=== PATIENT | male | born 1990 | race Caucasian/White ===

== ENCOUNTER 2017-04-26 00:36 | Emergency (ER) | payer OTHER ==
[2017-04-26 01:06] VITALS: BP 132/82; TEMP 97.8; BMI 21.8
[2017-04-26] MEDS ORDERED: MORPHINE 4 MG/ML SYRINGE IM STA (01:09)
[2017-04-26] MEDS ORDERED: ZOFRAN 4 MG/2 ML IM STA (01:09)
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
== END 2017-04-26 02:05 | disposition home or self-care (01) ==
LOC: ED 00:36
DX: S22.31XA Fracture of one rib, right side, initial encounter for closed fracture (principal); V89.0XXA Person injured in unspecified motor-vehicle accident, nontraffic, initial encounter; F17.210 Nicotine dependence, cigarettes, uncomplicated
CPT/HCPCS: 96372; 99283

== ENCOUNTER 2018-06-30 13:25 | Emergency (ER) ==
[2018-06-30 13:29] VITALS: BP 132/81; TEMP 98.4; BMI 24.7
--- NOTE | 2018-06-30 15:29 | ED.PDOC ---
General ED Provider: Dr. JU GARAY Chief Complaint: Nausea/Vomiting Stated Complaint: DIARRHEA Time Seen by Physician: 13:30 Mode of Arrival: Walk-In Information Source: Patient Exam Limitations: No limitations Nursing and Triage Documentation Reviewed and Agree: Yes Does patient meet sepsis criteria?: No System Inflammatory Response Syndrome: Not Applicable Sepsis Protocol: For patient's 13 years and over: Temp is 96.8 and below OR 101 and greater Pulse >90 BPM Resp >20/minute Acutely Altered Mental Status Are patient's symptoms suggestive of a new infection, such as: -Pneumonia -Skin, Soft Tissue -Endocarditis -UTI -Bone, Joint Infection -Implantable Device -Acute Abdominal Infection -Wound Infection -Meningitis -Blood Stream Catheter Infection -Unknown GI Complaint Exam - Vomiting/Diarrhea Complaint/Exam Onset/Duration: 1 DAY Symptoms Are: Still present Episodes of Diarrhea Over Last 24 Hours: 4 Initial Severity: Mild Current Severity: None Character of Vomiting: Reports: Non-bilious Aggravating: Reports: None Alleviating: Reports: None Associated Signs and Symptoms: Denies: Dizziness, Light-headedness, Melena, Hematemesis, Fever, Abdominal pain, Cramping Related History: Reports: Similar episode Non-GI Risk Factors: Reports: None Surgical Obstruction Risk Factors: Reports: None Related Surgical History: Reports: None Abdominal Findings: Present: None Differential Diagnoses: Viral Gastroenteritis Review of Systems - Review Of Systems Constitutional: Reports: No symptoms Eyes: Reports: No symptoms Ears, Nose, Mouth, Throat: Reports: No symptoms Respiratory: Reports: No symptoms Cardiac: Reports: No symptoms GI: Reports: Diarrhea, Nausea, Vomiting : Reports: No symptoms Musculoskeletal: Reports: No symptoms Skin: Reports: No symptoms Neurological: Reports: No symptoms Endocrine: Reports: No symptoms Hematologic/Lymphatic: Reports: No symptoms All Other Systems: Reviewed and Negative Past Medical History - Past Medical History Previously Healthy: Yes Endocrine: Reports: None Cardiovascular: Reports: None Respiratory: Reports: None Hematological: Reports: None Gastrointestinal: Reports: None Genitourinary: Reports: None Neuro/Psych: Reports: None Musculoskeletal: Reports: None Cancer: Reports: None - Surgical History General Surgical History: Reports: None - Family History Family History: Reports: None - Social History Smoking Status: Current every day smoker Hx Substance Use: Yes (marijuana) Alcohol Screening: Heavy Physical Exam - Physical Exam Appearance: Well-appearing, No pain distress, Well-nourished Eyes: SANDRA, EOMI, Conjunctiva clear ENT: Ears normal, Nose normal, Oropharynx normal Respiratory: Airway patent, Breath sounds clear, Breath sounds equal, Respirations nonlabored Cardiovascular: RRR, Pulses normal, No rub, No murmur GI/: Soft, Nontender, No masses, Bowel sounds normal, No Organomegaly Musculoskeletal: Normal strength, ROM intact, No edema, No calf tenderness Skin: Warm, Dry, Normal color Neurological: Sensation intact, Motor intact, Reflexes intact, Cranial nerves intact, Alert, Oriented Psychiatric: Affect appropriate, Mood appropriate Critical Care Note - Critical Care Note Total Time (mins): 0 Course - Course Hematology/Chemistry: 06/30/18 14:20 06/30/18 14:20 Orders, Labs, Meds: Lab Review 06/30/18 06/30/18 06/30/18 14:15 14:20 14:20 WBC 4.81 RBC 5.04 Hgb 15.2 Hct 45.0 MCV 89.3 MCH 30.2 MCHC 33.8 RDW Coeff of Charlene 13.5 Plt Count 177 Immature Gran % (Auto) 0.2 Neut % (Auto) 58.2 Lymph % (Auto) 32.6 Pender % (Auto) 6.7 Eos % (Auto) 1.9 Baso % (Auto) 0.4 Immature Gran # (Auto) 0.0 Neut # (Auto) 2.8 Lymph # (Auto) 1.6 Pender # (Auto) 0.3 L Eos # (Auto) 0.1 Baso # (Auto) 0.0 Sodium 138 Potassium 3.6 Chloride 106 Carbon Dioxide 24 Anion Gap 11.6 BUN 13 Creatinine 1.01 Estimated GFR (MDRD) 89.00 BUN/Creatinine Ratio 12.87 Glucose 85 Calcium 9.5 Total Bilirubin 1.2 AST 18 ALT 14 Alkaline Phosphatase 82 Total Protein 7.9 Albumin 4.4 Globulin 3.5 Albumin/Globulin Ratio 1.26 Amylase 30 Lipase 10 Urine Color Yellow Urine Clarity Clear Urine pH 7.0 Ur Specific Jermyn 1.015 Urine Protein Negative Urine Glucose (UA) Negative Urine Ketones Negative Urine Blood Negative Urine Nitrite Negative Urine Bilirubin Negative Urine Urobilinogen 1.0 Ur Leukocyte Esterase Negative Orders Category Date Time Status AMYLASE Stat LAB 06/30/18 14:20 Completed CBC W/ AUTO DIFF Stat LAB 06/30/18 14:20 Completed COMPREHENSIVE METABOLIC PANEL Stat LAB 06/30/18 14:20 Completed LIPASE Stat LAB 06/30/18 14:20 Completed URINALYSIS C & S IF INDICATED Stat LAB 06/30/18 14:15 Completed Vital Signs: Temp Pulse Resp BP Pulse Ox 06/30/18 13:25 98.4 F 64 18 132/81 97 Departure - Departure Time of Disposition: 15:28 Disposition: HOME SELF-CARE Discharge Problem: Nausea, Vomiting, Gastroenteritis Instructions: Gastroenteritis (ED), Acute Nausea and Vomiting (ED) Condition: Good Pt referred to PMD for follow-up: Yes IPMP verified?: No Additional Instructions: Please call your Family Physician as soon as possible to schedule a follow-up appointment. Allergies/Adverse Reactions: Allergies No Known Allergies Allergy (Verified 06/30/18 13:29) Home Medications: Ambulatory Orders 1 [No Reported Medications] 04/26/17
== END 2018-06-30 15:32 | disposition home or self-care (01) ==
LOC: ED 13:25
DX: K52.9 Noninfective gastroenteritis and colitis, unspecified (principal); F17.210 Nicotine dependence, cigarettes, uncomplicated
CPT/HCPCS: 36415; 80053; 81001; 82150; 83690; 85025; 99283

== ENCOUNTER 2019-03-19 13:46 | Emergency (ER) ==
[2019-03-19 13:50] VITALS: BP 122/83; TEMP 99.1; BMI 22.6
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
== END 2019-03-19 14:09 | disposition home or self-care (01) ==
LOC: ED 13:46
DX: H93.91 Unspecified disorder of right ear (principal); H92.01 Otalgia, right ear; H66.91 Otitis media, unspecified, right ear; Z72.0 Tobacco use
CPT/HCPCS: 99282

== ENCOUNTER 2019-07-23 06:18 | Emergency (ER) ==
[2019-07-23 06:27] VITALS: BP 150/84; TEMP 100.9; BMI 21.4
--- NOTE | 2019-07-23 06:39 | ED.PDOC ---
General Stated Complaint: Abdominal pain Epigastric area x 2 days better when he put pressure on it. Admits to drinking a fifth of whisky and some mixed drinks. Time Seen by Physician: 06:31 Mode of Arrival: Walk-In Information Source: Patient Nursing and Triage Documentation Reviewed and Agree: Yes Does patient meet sepsis criteria?: No System Inflammatory Response Syndrome: Temp 101F or Greater, Pulse >90 BPM <AYESHA ORTA - Last Filed: 07/23/19 06:31> <JU GARAY - Last Filed: 07/23/19 08:24> ED Provider: Dr. JU GARAY Chief Complaint: Abdominal Pain Sepsis Protocol: For patient's 13 years and over: Temp is 96.8 and below OR 101 and greater Pulse >90 BPM Resp >20/minute Acutely Altered Mental Status Are patient's symptoms suggestive of a new infection, such as: -Pneumonia -Skin, Soft Tissue -Endocarditis -UTI -Bone, Joint Infection -Implantable Device -Acute Abdominal Infection -Wound Infection -Meningitis -Blood Stream Catheter Infection -Unknown GI Complaint Exam - Abdominal Pain Complaint/Exam Onset: Gradual Duration: 2 days Symptoms Are: Still present Timing: Constant Initial Severity: Moderate Current Severity: Severe Location of Pain: Epigastric Radiates To: Reports: Back Character: Reports: Aching, Throbbing, Cramping Aggravating: Reports: Movement (Lying down.) Alleviating: Reports: None Associated Signs and Symptoms: Reports: Back pain. Denies: Nausea, Vomiting AAA Risk Factors: Reports: None Cardiac Risk Factors: Reports: Smoking Testicular Torsion Risk Factors: Reports: None Surgical Obstruction Risk Factors: Reports: None Related Surgical History: Reports: None Abdominal Findings: Present: Peritoneal signs, Other (Guarding) Differential Diagnoses: Bowel Obstruction, Pancreatitis, Renal Colic, UTI <AYESHA ORTA - Last Filed: 07/23/19 06:31> Review of Systems - Review Of Systems Constitutional: Reports: No symptoms Eyes: Reports: No symptoms Respiratory: Reports: No symptoms Cardiac: Reports: No symptoms GI: Reports: Abdominal pain : Reports: No symptoms Musculoskeletal: Reports: No symptoms Skin: Reports: No symptoms Neurological: Reports: Anxiety Endocrine: Reports: No symptoms Hematologic/Lymphatic: Reports: No symptoms All Other Systems: Reviewed and Negative <AYESHA ORTA - Last Filed: 07/23/19 06:31> Past Medical History - Past Medical History Previously Healthy: Yes Endocrine: Reports: None Cardiovascular: Reports: None Respiratory: Reports: None Hematological: Reports: None Gastrointestinal: Reports: Liver (Hepatitis C), Gallstones Genitourinary: Reports: None Neuro/Psych: Reports: None Musculoskeletal: Reports: None Cancer: Reports: None - Surgical History General Surgical History: Denies: Cholecystectomy - Family History Family History: Reports: None - Social History Smoking Status: Current every day smoker Hx Substance Use: Yes (marijuana) Alcohol Screening: Heavy - Immunizations Tetanus Shot up to Date: No (last Td when freshman in ) <AYESHA ORTA - Last Filed: 07/23/19 06:31> Physical Exam - Physical Exam Appearance: Ill-appearing Pain Distress: Severe Neck: Supple Respiratory: Airway patent, Breath sounds clear, Breath sounds equal, Respirations nonlabored Cardiovascular: Pulses normal, Tachycardia GI/: Soft, Tender (Epigastric ), Bowel sounds hypoactive Musculoskeletal: Normal strength, ROM intact, No edema, No calf tenderness Skin: Warm, Dry, Normal color Neurological: Alert, Oriented <AYESHA ORTA - Last Filed: 07/23/19 06:31> Interpretation - Radiology Interpretation Radiology Interpretation By: Radiologist Exam Interpreted: CT Scan (Abdomen and Pelvis ) <YOUAYESHA Helio Last Filed: 07/23/19 06:31> Critical Care Note - Critical Care Note Total Time (mins): 0 <JU GARAY - Last Filed: 07/23/19 08:24> Course - Course Hematology/Chemistry: 07/23/19 06:50 07/23/19 06:50 <JU GARAY - Last Filed: 07/23/19 08:24> - Course Orders, Labs, Meds: Lab Review 07/23/19 07/23/19 07/23/19 06:50 06:50 06:50 WBC 5.55 RBC 4.92 Hgb 14.8 Hct 43.7 MCV 88.8 MCH 30.1 MCHC 33.9 RDW Coeff of Charlene 13.3 Plt Count 153 Immature Gran % (Auto) 0.4 Neut % (Auto) 80.1 Lymph % (Auto) 11.2 [place] % (Auto) 7.9 Eos % (Auto) 0.0 Baso % (Auto) 0.4 Immature Gran # (Auto) 0.0 Neut # (Auto) 4.5 Lymph # (Auto) 0.6 [place] # (Auto) 0.4 Eos # (Auto) 0.0 Baso # (Auto) 0.0 Sodium 136.5 Potassium 3.38 L Chloride 102.2 Carbon Dioxide 22.4 Anion Gap 15.28 BUN 11.3 Creatinine 0.94 Estimated GFR (MDRD) 96.00 BUN/Creatinine Ratio 12.02 Glucose 97.2 Lactic Acid Calcium 8.83 Total Bilirubin 0.96 AST 35.9 ALT 27.4 Alkaline Phosphatase 74.7 Total Protein 8.38 H Albumin 5.05 H Globulin 3.33 Albumin/Globulin Ratio 1.51 Amylase 46.0 Lipase 22.0 L Procalcitonin 0.25 Urine Color Urine Clarity Urine pH Ur Specific [place] Urine Protein Urine Glucose (UA) Urine Ketones Urine Blood Urine Nitrite Urine Bilirubin Urine Urobilinogen Ur Leukocyte Esterase Urine Microscopic RBC Urine Microscopic WBC Ur Squamous Epith Cells Urine Opiates Screen Ur Oxycodone Screen Urine Methadone Screen Ur Propoxyphene Screen Ur Barbiturates Screen U Tricyclic Antidepress Ur Phencyclidine Scrn Ur Amphetamine Screen U Methamphetamines Scrn U Benzodiazepines Scrn Urine Cocaine Screen U Cannabinoids Screen Plasma/Serum Alcohol 07/23/19 07/23/19 07/23/19 06:50 07:32 07:45 WBC RBC Hgb Hct MCV MCH MCHC RDW Coeff of Charlene Plt Count Immature Gran % (Auto) Neut % (Auto) Lymph % (Auto) [place] % (Auto) Eos % (Auto) Baso % (Auto) Immature Gran # (Auto) Neut # (Auto) Lymph # (Auto) [place] # (Auto) Eos # (Auto) Baso # (Auto) Sodium Potassium Chloride Carbon Dioxide Anion Gap BUN Creatinine Estimated GFR (MDRD) BUN/Creatinine Ratio Glucose Lactic Acid 0.73 Calcium Total Bilirubin AST ALT Alkaline Phosphatase Total Protein Albumin Globulin Albumin/Globulin Ratio Amylase Lipase Procalcitonin Urine Color Yellow Urine Clarity Clear Urine pH 6.0 Ur Specific [place] 1.025 Urine Protein 1+ Urine Glucose (UA) Negative Urine Ketones 1+ Urine Blood Negative Urine Nitrite Negative Urine Bilirubin 1+ Urine Urobilinogen 1.0 Ur Leukocyte Esterase Negative Urine Microscopic RBC 0-2 Urine Microscopic WBC 0-2 Ur Squamous Epith Cells Not present Urine Opiates Screen Ur Oxycodone Screen Urine Methadone Screen Ur Propoxyphene Screen Ur Barbiturates Screen U Tricyclic Antidepress Ur Phencyclidine Scrn Ur Amphetamine Screen U Methamphetamines Scrn U Benzodiazepines Scrn Urine Cocaine Screen U Cannabinoids Screen Plasma/Serum Alcohol < 10.0 07/23/19 07:45 WBC RBC Hgb Hct MCV MCH MCHC RDW Coeff of Charlene Plt Count Immature Gran % (Auto) Neut % (Auto) Lymph % (Auto) [place] % (Auto) Eos % (Auto) Baso % (Auto) Immature Gran # (Auto) Neut # (Auto) Lymph # (Auto) [place] # (Auto) Eos # (Auto) Baso # (Auto) Sodium Potassium Chloride Carbon Dioxide Anion Gap BUN Creatinine Estimated GFR (MDRD) BUN/Creatinine Ratio Glucose Lactic Acid Calcium Total Bilirubin AST ALT Alkaline Phosphatase Total Protein Albumin Globulin Albumin/Globulin Ratio Amylase Lipase Procalcitonin Urine Color Urine Clarity Urine pH Ur Specific [place] Urine Protein Urine Glucose (UA) Urine Ketones Urine Blood Urine Nitrite Urine Bilirubin Urine Urobilinogen Ur Leukocyte Esterase Urine Microscopic RBC Urine Microscopic WBC Ur Squamous Epith Cells Urine Opiates Screen Negative Ur Oxycodone Screen Negative Urine Methadone Screen Negative Ur Propoxyphene Screen Negative Ur Barbiturates Screen Negative U Tricyclic Antidepress Negative Ur Phencyclidine Scrn Negative Ur Amphetamine Screen Positive U Methamphetamines Scrn Positive U Benzodiazepines Scrn Positive Urine Cocaine Screen Negative U Cannabinoids Screen Negative Plasma/Serum Alcohol Orders Category Date Time Status ED APPLY O2 .ONCE EMERGENCY 07/23/19 06:33 Active ED DEPARTMENT HEAD APPLIED .ONCE EMERGENCY 07/23/19 06:33 Active ED VITAL SIGNS Q1HR EMERGENCY 07/23/19 06:33 Active IV [ED IV/MEDIPORT/POWERPORT] .ONCE EMERGENCY 07/23/19 06:42 Active AMYLASE Stat LAB 07/23/19 06:50 Completed BLOOD CULTURE (ED ONLY) Stat LAB 07/23/19 06:50 Received CBC W/ AUTO DIFF Stat LAB 07/23/19 06:50 Completed COMPREHENSIVE METABOLIC PANEL Stat LAB 07/23/19 06:50 Completed ETOH LEVEL [BLOOD ALCOHOL] Stat LAB 07/23/19 07:23 Ordered LACTIC ACID Stat LAB 07/23/19 06:50 Completed LIPASE Stat LAB 07/23/19 06:50 Completed PROCALCITONIN Stat LAB 07/23/19 06:50 Received URINALYSIS C & S IF INDICATED Stat LAB 07/23/19 06:33 Uncollected URINE DRUG SCREEN (RAPID FOR ED) [DRUG SCREEN, URINE, LAB 07/23/19 07:23 Uncollected RAPID] Stat 0.9 % Sodium Chloride [Saline Flush] MEDS 07/23/19 06:42 Active 1 syr IVF PRN PRN Ketorolac Tromethamine [Toradol] MEDS 07/23/19 06:39 Discontinued 30 mg IVP ONCE STA Potassium Chloride [K-Dur] MEDS 07/23/19 07:22 Stat 40 meq PO ONCE STA Ringers Lactated Solution [Lactated Ringers] 1,000 ml MEDS 07/23/19 06:[address] ABDOMEN/PELVIS WO CONTRAST Stat RADS 07/23/19 06:[address] CHEST W/O CONTRAST Stat RADS 07/23/19 07:04 Ordered Medications Generic Name Dose Route Start Last Admin Trade Name Freq PRN Reason Stop Dose Admin Sodium Chloride 1 syr 07/23/19 06:42 07/23/19 06:55 Saline Flush IVF 1 syr PRN PRN Administration To flush IV Discontinued Medications Generic Name Dose Route Start Last Admin Trade Name Freq PRN Reason Stop Dose Admin Lactated Ringer's 1,000 mls @ 1,000 mls/hr 07/23/19 06:33 07/23/19 06:54 Lactated Ringers IV 07/23/19 07:32 1,000 mls/hr BOLUS STA Administration Ketorolac Tromethamine 30 mg 07/23/19 06:39 07/23/19 06:54 Toradol IVP 07/23/19 06:40 30 mg ONCE STA Administration Potassium Chloride 40 meq 07/23/19 07:22 07/23/19 07:32 K-Dur PO 07/23/19 07:23 40 meq ONCE STA Administration Vital Signs: Temp Pulse Resp BP Pulse Ox 07/23/19 06:19 100.9 F H 108 H 20 150/84 H 95 Departure <AYESHA ORTA - Last Filed: 07/23/19 06:31> - Departure Time of Disposition: 08:24 Pt referred to PMD for follow-up: No IPMP verified?: No Disposition Discussed With: Patient <JU GARAY - Last Filed: 07/23/19 08:24> - Departure Disposition: AMA Discharge Problem: Abdominal pain Instructions: Acute Abdominal Pain (ED) Condition: Good Allergies/Adverse Reactions: Allergies No Known Allergies Allergy (Verified 04/29/19 13:50) Home Medications: Ambulatory Orders 1 [No Reported Medications] 07/23/19
[2019-07-23] MEDS: LACTATED RINGERS 1,000 ML IV STA (06:54)
[2019-07-23] MEDS: TORADOL IVP STA (06:54)
--- NOTE | 2019-07-23 07:14 | CT ---
EXAM: CT abdomen pelvis without intravenous contrast 07/23/2019. Sagittal and coronal reformatted i mages obtained HISTORY: Epigastric pain radiating to the back COMPARISON: None. FINDINGS: The liver, gallbladder, adrenal glands and kidneys show no acute abnormality. No hydronep hrosis. Unremarkable urinary bladder. The spleen and pancreas show no acute abnormality. There is no bowel obstruction. Normal appendix. Unremarkable urinary bladder. No free air or free fluid. No acute osseous abnormality. IMPRESSION: No urinary or bowel obstruction and normal appendix. There is no acute inflammatory pro cess identified within the abdomen or pelvis within the limitation of a noncontrast enhanced examinat ion.
[2019-07-23] MEDS: K-DUR PO STA (07:32)
--- NOTE | 2019-07-23 07:50 | CT ---
EXAM: CT chest without contrast HISTORY: Cough COMPARISON: None TECHNIQUE: Multiple axial images of the chest were obtained without2 intravenous contrast. Images we re reformatted in the sagittal and coronal planes. FINDINGS: Normal thyroid. Normal heart size. No pericardial effusion. Normal diameter aorta. No enlarged me diastinal, hilar or axillary lymph nodes. No pneumothorax, pleural effusion, or focal consolidation. No suspicious pulmonary nodule. No acute findings within the visualized upper abdomen. No acute osseous abnormality. No aggressive osseous lesion. IMPRESSION: No acute chest findings; normal CT the chest
== END 2019-07-23 08:28 | disposition left against medical advice (07) ==
LOC: ED 06:18
DX: R10.13 Epigastric pain (principal); F17.210 Nicotine dependence, cigarettes, uncomplicated
CPT/HCPCS: 36415; 80053; 80306; 80307; 81001; 82150; 83605; 83690; 84145; 85025; 87040; 96361; 96374; 99284